=== PATIENT | female | born 2000 | race Caucasian/White ===

== ENCOUNTER 2025-01-24 15:56 | Emergency (ER) | payer BC, OTHER ==
[~2025-01-24] VITALS: Ht 162.6 cm; Wt 60.8 kg
[2025-01-24 16:21] VITALS: BP 109/83; TEMP 98.7
[2025-01-24] MEDS ORDERED: ALBU18HF2 INH (16:28)
[2025-01-24] MEDS ORDERED: PRED20TA PO (16:28)
[2025-01-24] MEDS ORDERED: NAPR-1164 PO (16:28)
[2025-01-24] MEDS ORDERED: IBUPROFEN 600 MG TABLET ONE (16:31)
[2025-01-24] MEDS: IBUPROFEN 600 MG TABLET PO ONE (16:33)
[2025-01-24 16:51] VITALS: O2SAT 97
== END 2025-01-24 16:53 | disposition home or self-care (01) ==
LOC: ER 16:03
DX: J20.9 Acute bronchitis, unspecified (principal); J02.9 Acute pharyngitis, unspecified; Z79.52 Long term (current) use of systemic steroids; Z87.891 Personal history of nicotine dependence
CPT/HCPCS: 99283; J7512